=== PATIENT | female | born 1965 | race Caucasian/White ===

== ENCOUNTER 2018-06-18 22:01 | Observation (INO) | payer OTHER ==
[~2018-06-18] VITALS: Ht 160 cm; Wt 64.1 kg
[~2018-06-18 22:01] MED LIST: CYCL5TAB PO; NAPR-985 PO
[2018-06-19] VITALS (10 sets, daily range): BP systolic 100–136; BP diastolic 56–69; PULSE 59–88; RESP 18–20; Ht 160 cm; Wt 64.1 kg
--- NOTE | 2018-06-19 05:26 | ERD ---
ER Documentation Chief Complaint Chief Complaint left arm shooting pain today, s/p angiogram today. denies CP / sob. HPI This is a 51-year female comes in with left arm shooting pain and palpitations. Patient received this earlier states she has had palpitations on and off over the past few months. She follows outpatient with cardiology. She denies any fevers chills nausea vomiting she does complain of some chest discomfort, but not pain. Denies any shortness of breath. Has been told she has "a weak heart" ROS All systems reviewed and are negative except as per history of present illness. Medications Home Meds Active Scripts Naproxen* (Naprosyn*) 500 Mg Tablet, 500 MG PO BID, #30 TAB Prov:JI RIVERA PA-C 11/13/15 Cyclobenzaprine Hcl* (Cyclobenzaprine Hcl*) 5 Mg Tablet, 5 MG PO Q8H PRN for PAIN, #15 TAB Prov:JI RIVERA PA-C 11/13/15 Allergies Allergies: Coded Allergies: No Known Allergy (Unverified , 06/18/18) PMhx/Soc Medical and Surgical Hx: pt denies Surgical Hx History of Surgery: No Anesthesia Reaction: No Hx Neurological Disorder: No Hx Respiratory Disorders: No Hx Cardiac Disorders: Yes (heart block) Hx Psychiatric Problems: No Hx Miscellaneous Medical Probl: No Hx Alcohol Use: No Hx Substance Use: No Hx Tobacco Use: No Smoking Status: Never smoker Physical Exam Vitals Vital Signs Date Temp Pulse Resp B/P (MAP) Pulse Ox O2 O2 Flow FiO2 Time Delivery Rate 06/19/18 58 12 103/49 99 Room Air 05:00 (67) 06/19/18 60 13 117/53 99 Room Air 03:26 (74) 06/19/18 119 16 140/50 100 Room Air 00:54 (80) 06/18/18 98.5 74 20 133/76 99 22:26 (95) Physical Exam Const: No acute distress Head: Atraumatic Eyes: Normal Conjunctiva ENT: Normal External Ears, Nose and Mouth. Neck: Full range of motion. No meningismus. Resp: Clear to auscultation bilaterally Cardio: Regular rate and rhythm, no murmurs Abd: Soft, non tender, non distended. Normal bowel sounds Skin: No petechiae or rashes Back: No midline or flank tenderness Ext: No cyanosis, or edema Neur: Awake and alert Psych: Normal Mood and Affect Result Diagram: 06/19/18 0136 06/19/18 0136 Results 24 hrs Laboratory Tests Test 06/19/18 01:36 White Blood Count 7.5 10^3/ul Red Blood Count 4.14 10^6/ul Hemoglobin 13.4 g/dl Hematocrit 39.8 % Mean Corpuscular Volume 96.1 fl Mean Corpuscular Hemoglobin 32.4 pg Mean Corpuscular Hemoglobin Concent 33.7 g/dl Red Cell Distribution Width 12.2 % Platelet Count 243 10^3/UL Mean Platelet Volume 9.7 fl Immature Granulocytes % 0.300 % Neutrophils % 22.9 % Lymphocytes % 66.2 % Monocytes % 8.5 % Eosinophils % 1.6 % Basophils % 0.5 % Nucleated Red Blood Cells % 0.0 /100WBC Immature Granulocytes # 0.020 10^3/ul Neutrophils # 1.7 10^3/ul Lymphocytes # 5.0 10^3/ul Monocytes # 0.6 10^3/ul Eosinophils # 0.1 10^3/ul Basophils # 0.0 10^3/ul Nucleated Red Blood Cells # 0.0 10^3/ul Sodium Level 143 mmol/L Potassium Level 4.4 mmol/L Chloride Level 105 mmol/L Carbon Dioxide Level 26 mmol/L Anion Gap 12 Blood Urea Nitrogen 13 mg/dl Creatinine 0.60 mg/dl Est Glomerular Filtrat Rate mL/min > 60 mL/min Glucose Level 105 mg/dl Calcium Level 9.8 mg/dl Total Bilirubin 1.1 mg/dl Direct Bilirubin 0.00 mg/dl Indirect Bilirubin 1.1 mg/dl Aspartate Amino Transf (AST/SGOT) 26 IU/L Alanine Aminotransferase (ALT/SGPT) 20 IU/L Alkaline Phosphatase 122 IU/L Troponin I < 0.012 ng/ml B-Type Natriuretic Peptide 766 PG/ML Total Protein 8.6 g/dl Albumin 4.7 g/dl Globulin 3.90 g/dl Albumin/Globulin Ratio 1.20 Procedures/MDM EKG: Rate/Rhythm: [Normal Sinus Rhythm] QRS, ST, T-waves: [No changes consistent w/ acute ischemia] Impression: [No evidence of ischemia or arrhythmia] Chest X-ray 1V Interpreted by me: Soft Tissue: No acute abnormalities Bones: No acute abnormalities Mediastinum/Cardiac Silhouette/Lungs: [No acute abnormalities] Medical decision making: Patient's symptoms are concerning for cardiac cause will require inpatient workup and continuous monitoring. Further w/u for ischemia, arrhythmia, PE or dissection will be deferred to the inpatient team. Accepting Care Team: Current data and ongoing care discussed. Time: 5:10 AM Primary Provider: Hospitalist Consulting: Deferred to inpatient Outstanding Data: none Departure Diagnosis: Primary Impression: Chest pain Chest pain type: unspecified Qualified Codes: R07.9 - Chest pain, unspecified Condition: KAELA Olvera Jun 19, 2018 05:25
[2018-06-19] MEDS ORDERED: CARV6.2579 PO (05:52)
[2018-06-19] MEDS ORDERED: ALBUTEROL/IPRATROPIUM (NEB) 3 ML AMP HHN PRN (07:30)
[2018-06-19] MEDS ORDERED: ACETAMINOPHEN 325 MG TAB PO PRN (07:30)
[2018-06-19] MEDS ORDERED: NACL 0.9% 3 ML SYG IV SCH (07:30)
[2018-06-19] MEDS ORDERED: ONDANSETRON 4 MG INJ IV PRN (07:30)
[2018-06-19] MEDS ORDERED: HYDROCODONE/APAP (5/325) TAB PO PRN ×2 (07:30)
--- NOTE | 2018-06-19 08:46 | HP ---
Date/Time of Note Date/Time of Note DATE: 06/19/18 TIME: 08:32 Assessment/Plan VTE Prophylaxis Pharmacological prophylaxis: LMWH Lines/Catheters IV Catheter Type (from Nrsg): Saline Lock Assessment/Plan Assessment/Plan 1. Chronic palpitations and chest pain: -Outpatient EKG with possible abnormality -Admit to telemetry unit -Initial EKG shows NSR -Supplemental oxygen, aspirin. As needed nitro -Trend troponin -2D-echo and cardiology consult 2. Possible systolic dysfunction: The patient, 2D echo a few weeks ago showed EF of 30% -No sign of acute CHF exacerbation on exam or by history -Follow-up 2D echo 3. Left arm pain (" electric shock"): Unknown etiology. Given the timing however, it could be from being bitten by bugs, like the patient explains -There is no sign of swelling and no tenderness on palpation -Watchful observation for now Result Diagram: 06/19/18 0136 06/19/18 0136 Results 24hrs Laboratory Tests Test 06/19/18 01:36 White Blood Count 7.5 Red Blood Count 4.14 L Hemoglobin 13.4 Hematocrit 39.8 Mean Corpuscular Volume 96.1 Mean Corpuscular Hemoglobin 32.4 Mean Corpuscular Hemoglobin Concent 33.7 Red Cell Distribution Width 12.2 Platelet Count 243 Mean Platelet Volume 9.7 Immature Granulocytes % 0.300 Neutrophils % 22.9 L Lymphocytes % 66.2 H Monocytes % 8.5 Eosinophils % 1.6 Basophils % 0.5 Nucleated Red Blood Cells % 0.0 Immature Granulocytes # 0.020 Neutrophils # 1.7 Lymphocytes # 5.0 H Monocytes # 0.6 Eosinophils # 0.1 Basophils # 0.0 Nucleated Red Blood Cells # 0.0 Sodium Level 143 Potassium Level 4.4 Chloride Level 105 Carbon Dioxide Level 26 Anion Gap 12 Blood Urea Nitrogen 13 Creatinine 0.60 Est Glomerular Filtrat Rate mL/min > 60 Glucose Level 105 Calcium Level 9.8 Total Bilirubin 1.1 Direct Bilirubin 0.00 Indirect Bilirubin 1.1 Aspartate Amino Transf (AST/SGOT) 26 Alanine Aminotransferase (ALT/SGPT) 20 Alkaline Phosphatase 122 H Troponin I < 0.012 B-Type Natriuretic Peptide 766 H Total Protein 8.6 H Albumin 4.7 Globulin 3.90 H Albumin/Globulin Ratio 1.20 HPI/ROS Admit Date/Time Admit Date/Time Jun 19, 2018 at 05:26 Hx of Present Illness This is a 53-year-old female with no significant past medical history who presented to ER for left forearm pain, palpitation, occasional chest pain and abnormal EKG. she said she was stung by a bug in her forearm in April of this year. She said she still has something stuck on her forearm and at the area became tender and erythematous. Since then, she said she has been occasionally experiencing electric shock type sensation on her left forearm. She went to see her PCP. During that visit, she also reported palpitation for over a year and half. She also reported occasional chest pain. An EKG was done a few weeks ago and she was told it was abnormal ("branch block"). She said she waited for authorization and yesterday she had CT angiogram of the chest. She does not know the results yet. She said she also had 2D echo as outpatient and she thinks her ejection fraction is 30%. Because of ongoing symptoms mentioned above and the abnormal EKG, she decided to come to the ER for evaluation. When she presented to ER, vitals were stable. EKG normal sinus rhythm. Chest x-ray without acute findings. PMH/Family/Social Past Medical History Medical History: other (See HPI) Medications Current Medications IV Flush (NS 3 ml) 3 ml PER PROTOCOL IV ; Start 06/19/18 at 07:30 Ondansetron HCl (Zofran Inj) 4 mg Q6H PRN IV NAUSEA/VOMITING; Start 06/19/18 at 07:30 Acetaminophen (Tylenol Tab) 650 mg Q6H PRN PO .PAIN 1-3 OR TEMP; Start 06/19/18 at 07:30 Acetaminophen/ Hydrocodone Bitart ([place] (5/325)) 1 tab Q6H PRN PO .PAIN 4-6; Start 06/19/18 at 07:30 Acetaminophen/ Hydrocodone Bitart ([place] (5/325)) 2 tab Q6H PRN PO .PAIN 7-10; Start 06/19/18 at 07:30 Enoxaparin Sodium (Lovenox) 40 mg DAILY SC ; Start 06/19/18 at 09:00 Albuterol/ Ipratropium (Duoneb) 3 ml Q2H RESP THERAPY PRN HHN SHORTNESS OF BREATH; Start 06/19/18 at 07:30 Carvedilol (Coreg) 6.25 mg BID PO ; Start 06/19/18 at 09:00 Coded Allergies: No Known Allergy (Unverified , 06/18/18) Past Surgical History Past Surgical Hx: other (HPI) Family History Significant Family History: no pertinent family hx Social History Alcohol Use: none Smoking Status: Never smoker Drug Use: none Exam/Review of Systems Vital Signs Vitals Vital Signs Date Temp Pulse Resp B/P (MAP) Pulse Ox O2 O2 Flow FiO2 Time Delivery Rate 06/19/18 98.0 71 18 136/69 100 08:20 (91) 06/19/18 Room Air 07:21 Exam Constitutional: alert, oriented, well developed Head: normocephalic, atraumatic Eyes: EOMI, PERRL Respiratory: clear to auscultation, normal air movement Cardiovascular: regular rate and rhythm, nl pulses Gastrointestinal: soft, non-tender Extremities: other (There is a very tiny area of on her left forearm, where patient said was stung by bugs) KAELA PARKER MD Jun 19, 2018 08:45
[2018-06-19] MEDS: ENOXAPARIN 40 MG/0.4 ML SYG SC SCH (12:11)
--- NOTE | 2018-06-19 13:17 | PN ---
Date/Time of Note Date/Time of Note DATE: 06/19/18 TIME: 13:16 Assessment/Plan VTE Prophylaxis Pharmacological prophylaxis: LMWH Lines/Catheters IV Catheter Type (from Nrs): Saline Lock Assessment/Plan Assessment/Plan 1. Chest pain, atypical, coronary CT angiogram was done yesterday outpatient, will follow 2. Palpitation, PVCs on ECG monitoring, no treatment needed at this time, check TSH 3. Outpatient Echo with LVEF 30%, follow up with repeated echo 4. Left arm pain (" electric shock"): Unknown etiology. Given the timing however, it happened 3 times after she was bitten by a bug at left forearm in 04/2018 5. LBBB on ECG 6. DVT prophylaxis: lovenox Result Diagram: 06/19/1813506/19/186 Results 24hrs Laboratory Tests Test 06/19/18 01:36 06/19/18 08:02 White Blood Count 7.5 Red Blood Count 4.14 L Hemoglobin 13.4 Hematocrit 39.8 Mean Corpuscular Volume 96.1 Mean Corpuscular Hemoglobin 32.4 Mean Corpuscular Hemoglobin Concent 33.7 Red Cell Distribution Width 12.2 Platelet Count 243 Mean Platelet Volume 9.7 Immature Granulocytes % 0.300 Neutrophils % 22.9 L Lymphocytes % 66.2 H Monocytes % 8.5 Eosinophils % 1.6 Basophils % 0.5 Nucleated Red Blood Cells % 0.0 Immature Granulocytes # 0.020 Neutrophils # 1.7 Lymphocytes # 5.0 H Monocytes # 0.6 Eosinophils # 0.1 Basophils # 0.0 Nucleated Red Blood Cells # 0.0 Sodium Level 143 Potassium Level 4.4 Chloride Level 105 Carbon Dioxide Level 26 Anion Gap 12 Blood Urea Nitrogen 13 Creatinine 0.60 Est Glomerular Filtrat Rate mL/min > 60 Glucose Level 105 Calcium Level 9.8 Total Bilirubin 1.1 Direct Bilirubin 0.00 Indirect Bilirubin 1.1 Aspartate Amino Transf (AST/SGOT) 26 Alanine Aminotransferase (ALT/SGPT) 20 Alkaline Phosphatase 122 H Troponin I < 0.012 < 0.012 B-Type Natriuretic Peptide 766 H Total Protein 8.6 H Albumin 4.7 Globulin 3.90 H Albumin/Globulin Ratio 1.20 Creatine Kinase 41 Creatine Kinase Index 1.3 Creatinine Kinase MB (Mass) 0.53 Subjective 24 Hr Interval Summary Free Text/Dictation no chest pain or SOB now Exam/Review of Systems Exam Vitals Vital Signs Date Temp Pulse Resp B/P (MAP) Pulse Ox O2 O2 Flow FiO2 Time Delivery Rate 06/19/18 98.3 70 20 111/56 99 11:45 (74) 06/19/18 Room Air 07:21 Constitutional: alert, oriented, well developed Psych: no complaints, nl mood/affect Head: normocephalic, atraumatic Eyes: nl conjunctiva, EOMI, nl lids ENMT: nl external ears & nose, nl lips & teeth, nl nasal mucosa & septum Neck: supple, non-tender Respiratory: clear to auscultation, normal air movement; No congested cough, No crackles/rales, No diminished breath sounds, No intercostal retraction, No labored breathing, No respirations, No tactile fremitus, No wheezing, No other Cardiovascular: regular rate and rhythm, nl pulses; No bruits, No diastolic murmur, No edema, No gallop, No irregular rhythm, No jugular venous distention (JVD), No murmurs/extra sounds, No rub, No systolic murmur, No S3, No S4, No other Gastrointestinal: soft, nl liver, spleen, non-tender Musculoskeletal: nl extremities to inspection Extremities: normal pulses; No calf tenderness, No cyanosis, No clubbing, No edema, No pitting pedal edema, No palpable cord, No tenderness, No other Neurological: [employer] II-XII intact, nl mental status, nl speech, nl strength Results Results 24hrs Laboratory Tests Test 06/19/18 01:36 06/19/18 08:02 White Blood Count 7.5 Red Blood Count 4.14 L Hemoglobin 13.4 Hematocrit 39.8 Mean Corpuscular Volume 96.1 Mean Corpuscular Hemoglobin 32.4 Mean Corpuscular Hemoglobin Concent 33.7 Red Cell Distribution Width 12.2 Platelet Count 243 Mean Platelet Volume 9.7 Immature Granulocytes % 0.300 Neutrophils % 22.9 L Lymphocytes % 66.2 H Monocytes % 8.5 Eosinophils % 1.6 Basophils % 0.5 Nucleated Red Blood Cells % 0.0 Immature Granulocytes # 0.020 Neutrophils # 1.7 Lymphocytes # 5.0 H Monocytes # 0.6 Eosinophils # 0.1 Basophils # 0.0 Nucleated Red Blood Cells # 0.0 Sodium Level 143 Potassium Level 4.4 Chloride Level 105 Carbon Dioxide Level 26 Anion Gap 12 Blood Urea Nitrogen 13 Creatinine 0.60 Est Glomerular Filtrat Rate mL/min > 60 Glucose Level 105 Calcium Level 9.8 Total Bilirubin 1.1 Direct Bilirubin 0.00 Indirect Bilirubin 1.1 Aspartate Amino Transf (AST/SGOT) 26 Alanine Aminotransferase (ALT/SGPT) 20 Alkaline Phosphatase 122 H Troponin I < 0.012 < 0.012 B-Type Natriuretic Peptide 766 H Total Protein 8.6 H Albumin 4.7 Globulin 3.90 H Albumin/Globulin Ratio 1.20 Creatine Kinase 41 Creatine Kinase Index 1.3 Creatinine Kinase MB (Mass) 0.53 Medications Medication Current Medications IV Flush (NS 3 ml) 3 ml PER PROTOCOL IV ; Start 06/19/18 at 07:30 Ondansetron HCl (Zofran Inj) 4 mg Q6H PRN IV NAUSEA/VOMITING; Start 06/19/18 at 07:30 Acetaminophen (Tylenol Tab) 650 mg Q6H PRN PO .PAIN 1-3 OR TEMP; Start 06/19/18 at 07:30 Acetaminophen/ Hydrocodone Bitart ([place] (5/325)) 1 tab Q6H PRN PO .PAIN 4-6; Start 06/19/18 at 07:30 Acetaminophen/ Hydrocodone Bitart ([place] (5/325)) 2 tab Q6H PRN PO .PAIN 7-10; Start 06/19/18 at 07:30 Enoxaparin Sodium (Lovenox) 40 mg DAILY SC Last administered on 06/19/18at 12:11; Admin Dose 40 MG; Start 06/19/18 at 09:00 Albuterol/ Ipratropium (Duoneb) 3 ml Q2H RESP THERAPY PRN HHN SHORTNESS OF BREATH; Start 06/19/18 at 07:30 Carvedilol (Coreg) 6.25 mg BID PO Last administered on 06/19/18at 11:51; Admin Dose 6.25 MG; Start 06/19/18 at 09:00 CLARICE BASS MD Jun 19, 2018 13:17
--- NOTE | 2018-06-19 17:58 | RADRPT ---
Echocardiogram Report Patient Name: Federico MCKEON ID: [id number] : 1965 (53y 5m)Study Date: 06/19/2018 8:28:10 AM Gender: FAccession #: [id number] Tech: Location: Ref.Physician: KAELA PARKER Height(Cm): BSA: Weight(Kg): Quality: AdequateAccount #: Procedures: Echocardiographic Report: Transthoracic echocardiogram with complete 2D, M-Mode, and doppler examination. Indications: Chest Pain, and Palpitations. Measurements: 2D/M Mode Doppler Measurement Value Normal Range Measurement Value Normal Range LVIDd 2D 5.2 [ 3.8 - 5.2 ] cm AV Peak Daniel 1.5 [ 100.0 - 170.0 ] cm/sec LVIDs 2D 3.9 [ 2.2 - 3.5 ] cm AV Peak PG 10.0 [ 2.0 - 9.0 ] mmHg LVPWd 2D 1.0 [ 0.6 - 0.9 ] cm LVOT Peak Daniel 1.1 [ 70.0 - 110.0 ] cm/sec IVSd 2D 1.0 [ 0.6 - 0.9 ] cm LVOT Peak PG 5.0 [ 2.0 - 6.0 ] mmHg IVS/LVPW 2D 1.0 ratio MV E Peak Daniel 0.8 [ 60.0 - 130.0 ] cm/sec AoR Diam 2D 2.6 [ 2.3 - 3.1 ] cm MV A Peak Daniel 1.0 [ 100.0 - 120.0 ] cm/sec LA/Ao 2D 2 ratio MV E/A 0.8 [ 0.8 - 1.5 ] ratio LA Dimen 2D 4.0 [ 2.7 - 3.8 ] cm MV Decel Time 197 [ 104 - 258 ] msec Lat E` Daniel 0.1 [ 10.0 - 15.0 ] cm/sec Med E` Daniel 0.0 cm/sec MV E/A 0.8 [ 0.8 - 1.5 ] ratio TR Peak Daniel 2.5 [ 100.0 - 280.0 ] cm/sec TR Peak PG 25.0 mmHg RVSP 28.0 [ 10.0 - 36.0 ] mmHg Findings: Left Ventricle: Normal left ventricular cavity size. Normal left ventricular wall thickness. Moderate global left ventricular systolic dysfunction. Ejection fraction is visually estimated at 35 %. Tissue Doppler/Mitral Doppler indices are consistent with impaired relaxation (Stage I diastolic dysfunction). There is global hypokinesis involving all segments of the left ventricle. These segments of the LV are dyskinetic septum base segment and mid septum segment. Right Ventricle: Normal right ventricular size. Normal right ventricular systolic function. Left Atrium: The left atrium is normal in size. Right Atrium: The right atrium is normal in size. Mitral Valve: Mild mitral leaflet calcification. Mild mitral annular calcification. Trace mitral regurgitation. Aortic Valve: No significant aortic stenosis or insufficiency. Aortic cusps appear mildly calcified. Tricuspid Valve: Normal appearance of the tricuspid valve. Estimated peak PA systolic pressure 28 mmHg. There is mild tricuspid regurgitation. Pulmonic Valve: Pulmonic valve not well visualized. Pericardium: Trivial pericardial effusion. Aorta: Normal aortic root. IVC: Normal size and normal respiratory collapse consistent with normal right atrial pressure. Conclusions: Moderately reduced LV systolic function. Grade 1 diastolic dysfunction. Trace mitral regurgitation. Mild tricuspid regurgitation and normal pulmonary pressures. Trivial sized perciardial effusion. Electronically Signed By: Anushka Sanders 2018-06-19 17:57:54 PDT
--- NOTE | 2018-06-19 18:06 | CONS ---
Assessment/Plan Assessment/Plan Hospital Course (Demo Recall) 53 yo presenting with left arm electric pain of unclear etiology with recent diagnosis of cardiomyopathy that is probably nonischemic. The arm discomfort and the cardiomyopathy are unlikely to be related. Impression: Cardiomyopathy, probably nonischemic Left bundle branch block left arm shooting pain Recommendations: Cardiac issues and arm unlikely related Consider EMG, neuro evaluation Continue carvedilol Will add losartan 25 mg daily Follow up with Dr. Jain regarding CTA of the coronaries and for further treatment of her cardiomyopathy Encouraged her to start walking for exercise again and to follow a healthy diet Consultation Date/Type/Reason Admit Date/Time Jun 19, 2018 at 05:26 Date of Consultation: Jun 19, 2018 Type of Consult Cardiology Reason for Consultation left arm discomfort and cardiomyopathy Requesting Provider: RAHUL LUJAN Date/Time of Note DATE: 06/19/18 TIME: 17:59 Hx of Present Illness 53 yo with recent diagnosis of cardiomyopathy, probably nonischemic, undergoing workup by Dr. Jain, presents with shooting left arm pain. She first noticed this in April in the setting of an insect bite, has been having palpitations for a couple years, which prompted her pcp to refer her for cardiology evaluation. Outpatient echo reveals LVEF 30%, carotid doppler without significant stenosis, and she underwent CTA of the coronaries yesterday and is awaiting result. The left arm shooting pain recurred yesterday which led her to come to the ED. At present, no arm pain. She has not exercised since March, has some mild dyspnea with climbing stairs which she attributes to being out of shape. She is on carvedilol 6.25 mg bid. Follow up appointment with Dr. Jain is on Monday next week. Constitutional: no complaints Eyes: no complaints ENT: no complaints Respiratory: no complaints Cardiovascular: palpitations Gastrointestinal: no complaints Genitourinary: no complaints Musculoskeletal: other (left arm electric shock pain) Skin: no complaints Neurologic: no complaints Endocrine: no complaints Lymphatic: no complaints Psychological: no complaints Immunologic: no complaints Past Medical History Medical History: other (cardiomyopathy) Home Meds Reported Medications Carvedilol* (Carvedilol*) 6.25 Mg Tablet, 6.25 MG PO BID, #60 TAB 06/19/18 Discontinued Scripts Naproxen* (Naprosyn*) 500 Mg Tablet, 500 MG PO BID, #30 TAB Prov:JI RIVERA PA-C 11/13/15 Cyclobenzaprine Hcl* (Cyclobenzaprine Hcl*) 5 Mg Tablet, 5 MG PO Q8H PRN for PAIN, #15 TAB Prov:JI RIVERA PA-C 11/13/15 Medications Current Medications IV Flush (NS 3 ml) 3 ml PER PROTOCOL IV ; Start 06/19/18 at 07:30 Ondansetron HCl (Zofran Inj) 4 mg Q6H PRN IV NAUSEA/VOMITING; Start 06/19/18 at 07:30 Acetaminophen (Tylenol Tab) 650 mg Q6H PRN PO .PAIN 1-3 OR TEMP; Start 06/19/18 at 07:30 Acetaminophen/ Hydrocodone Bitart ([place] (5/325)) 1 tab Q6H PRN PO .PAIN 4-6; Start 06/19/18 at 07:30 Acetaminophen/ Hydrocodone Bitart ([place] (5/325)) 2 tab Q6H PRN PO .PAIN 7-10; Start 06/19/18 at 07:30 Enoxaparin Sodium (Lovenox) 40 mg DAILY SC Last administered on 06/19/18at 12:11; Admin Dose 40 MG; Start 06/19/18 at 09:00 Albuterol/ Ipratropium (Duoneb) 3 ml Q2H RESP THERAPY PRN HHN SHORTNESS OF BREATH; Start 06/19/18 at 07:30 Carvedilol (Coreg) 6.25 mg BID PO Last administered on 06/19/18at 11:51; Admin Dose 6.25 MG; Start 06/19/18 at 09:00 Allergies: Coded Allergies: No Known Allergy (Unverified , 06/18/18) Past Surgical History Past Surgical Hx: no surgical history Family History Significant Family History: no pertinent family hx (no premature cad) Social History Alcohol Use: none Smoking Status: Never smoker Drug Use: none Exam/Review of Systems Vital Signs Vitals Vital Signs Date Temp Pulse Resp B/P (MAP) Pulse Ox O2 O2 Flow FiO2 Time Delivery Rate 06/19/18 59 16:00 06/19/18 97.8 20 119/57 97 15:47 (77) 06/19/18 Room Air 07:21 Exam Constitutional: alert, oriented, well developed Psych: nl mood/affect Head: normocephalic, atraumatic Eyes: nl conjunctiva, EOMI, nl lids, nl sclera ENMT: nl external ears & nose, nl lips & teeth, nl nasal mucosa & septum Neck: supple; No jvd, No bruits Respiratory: clear to auscultation, normal air movement Cardiovascular: regular rate and rhythm, nl pulses; No murmurs/extra sounds Gastrointestinal: soft, nl liver, spleen, non-tender Musculoskeletal: nl extremities to inspection Extremities: normal pulses Neurological: nl mental status, nl speech, other (Tinnel's test negative) Skin: nl turgor; No rash or lesions Labs Result Diagram: 06/19/18 0136 06/19/18 0136 Results 24hrs Laboratory Tests Test 06/19/18 01:36 06/19/18 08:02 06/19/18 13:36 White Blood Count 7.5 Red Blood Count 4.14 L Hemoglobin 13.4 Hematocrit 39.8 Mean Corpuscular Volume 96.1 Mean Corpuscular Hemoglobin 32.4 Mean Corpuscular Hemoglobin Concent 33.7 Red Cell Distribution Width 12.2 Platelet Count 243 Mean Platelet Volume 9.7 Immature Granulocytes % 0.300 Neutrophils % 22.9 L Lymphocytes % 66.2 H Monocytes % 8.5 Eosinophils % 1.6 Basophils % 0.5 Nucleated Red Blood Cells % 0.0 Immature Granulocytes # 0.020 Neutrophils # 1.7 Lymphocytes # 5.0 H Monocytes # 0.6 Eosinophils # 0.1 Basophils # 0.0 Nucleated Red Blood Cells # 0.0 Sodium Level 143 Potassium Level 4.4 Chloride Level 105 Carbon Dioxide Level 26 Anion Gap 12 Blood Urea Nitrogen 13 Creatinine 0.60 Est Glomerular Filtrat Rate mL/min > 60 Glucose Level 105 Calcium Level 9.8 Total Bilirubin 1.1 Direct Bilirubin 0.00 Indirect Bilirubin 1.1 Aspartate Amino Transf (AST/SGOT) 26 Alanine Aminotransferase (ALT/SGPT) 20 Alkaline Phosphatase 122 H Troponin I < 0.012 < 0.012 < 0.012 B-Type Natriuretic Peptide 766 H Total Protein 8.6 H Albumin 4.7 Globulin 3.90 H Albumin/Globulin Ratio 1.20 Creatine Kinase 41 38 Creatine Kinase Index 1.3 0.9 Creatinine Kinase MB (Mass) 0.53 0.36 Imaging Imaging EKG shows nsr at 62 bpm with lbbb Echo demonstrates moderately reduced LVEF at 35% with global hypokinesis Medications Medications Current Medications IV Flush (NS 3 ml) 3 ml PER PROTOCOL IV ; Start 06/19/18 at 07:30 Ondansetron HCl (Zofran Inj) 4 mg Q6H PRN IV NAUSEA/VOMITING; Start 06/19/18 at 07:30 Acetaminophen (Tylenol Tab) 650 mg Q6H PRN PO .PAIN 1-3 OR TEMP; Start 06/19/18 at 07:30 Acetaminophen/ Hydrocodone Bitart ([place] (5/325)) 1 tab Q6H PRN PO .PAIN 4-6; Start 06/19/18 at 07:30 Acetaminophen/ Hydrocodone Bitart ([place] (5/325)) 2 tab Q6H PRN PO .PAIN 7-10; Start 06/19/18 at 07:30 Enoxaparin Sodium (Lovenox) 40 mg DAILY SC Last administered on 06/19/18at 12:11; Admin Dose 40 MG; Start 06/19/18 at 09:00 Albuterol/ Ipratropium (Duoneb) 3 ml Q2H RESP THERAPY PRN HHN SHORTNESS OF BREATH; Start 06/19/18 at 07:30 Carvedilol (Coreg) 6.25 mg BID PO Last administered on 06/19/18at 11:51; Admin Dose 6.25 MG; Start 06/19/18 at 09:00 ENDY VILLA Jun 19, 2018 18:06
[2018-06-20] VITALS (8 sets, daily range): BP systolic 118–135; BP diastolic 55–87; PULSE 57–97; RESP 18–22
[2018-06-20] MEDS: ENOXAPARIN 40 MG/0.4 ML SYG SC SCH (08:45)
--- NOTE | 2018-06-20 09:41 | CONS ---
Assessment/Plan Assessment/Plan Hospital Course (Demo Recall) 53 yo presenting with left arm electric pain of unclear etiology with recent diagnosis of cardiomyopathy that is probably nonischemic. The arm discomfort and the cardiomyopathy are unlikely to be related. Impression: Cardiomyopathy, probably nonischemic, awaiting CT angio result Left bundle branch block left arm shooting pain, improved Recommendations: Cardiac issues and arm unlikely related Consider EMG, neuro evaluation which can be done as an outpatient Continue carvedilol, added losartan 25 mg daily Follow up with Dr. Jain regarding CTA of the coronaries and for further treatment of her cardiomyopathy Encouraged her to start walking for exercise again and to follow a healthy diet Consultation Date/Type/Reason Admit Date/Time Jun 19, 2018 at 05:26 Initial Consult Date 06/19/18 Type of Consult Cardiology Requesting Provider: RAHUL LUJAN Date/Time of Note DATE: 06/20/18 TIME: 09:39 24 HR Interval Summary Free Text/Dictation No events overnight. Left arm without pain. Patient walking in her room. Eager to go home. Exam/Review of Systems Vital Signs Vitals Vital Signs Date Temp Pulse Resp B/P (MAP) Pulse Ox O2 O2 Flow FiO2 Time Delivery Rate 06/20/18 98.6 68 22 119/55 96 Room Air 07:20 (76) Intake and Output 06/19/18 06/19/18 06/20/18 1414:59 22:59 06:59 IntakeIntake Total 720 ml BalanceBalance 720 ml Exam Constitutional: alert, oriented, well developed Psych: no complaints, nl mood/affect Head: normocephalic, atraumatic Eyes: nl lids, nl sclera ENMT: nl external ears & nose Neck: supple; No bruits Respiratory: clear to auscultation, normal air movement Cardiovascular: regular rate and rhythm; No murmurs/extra sounds Gastrointestinal: soft Musculoskeletal: nl extremities to inspection, nl gait and stance Extremities: No edema Neurological: nl mental status, nl speech Labs Result Diagram: 06/20/18 0506/20/18 0511 Results 24hrs Laboratory Tests Test 06/19/18 13:36 06/20/18 05:11 Creatine Kinase 38 Creatine Kinase Index 0.9 Creatinine Kinase MB (Mass) 0.36 Troponin I < 0.012 White Blood Count 6.4 Red Blood Count 3.86 L Hemoglobin 12.5 Hematocrit 37.0 Mean Corpuscular Volume 95.9 Mean Corpuscular Hemoglobin 32.4 Mean Corpuscular Hemoglobin Concent 33.8 Red Cell Distribution Width 12.4 Platelet Count 229 Mean Platelet Volume 9.8 Immature Granulocytes % 0.300 Neutrophils % 35.7 L Lymphocytes % 55.1 H Monocytes % 7.1 Eosinophils % 1.3 Basophils % 0.5 Nucleated Red Blood Cells % 0.0 Immature Granulocytes # 0.020 Neutrophils # 2.3 Lymphocytes # 3.5 H Monocytes # 0.5 Eosinophils # 0.1 Basophils # 0.0 Nucleated Red Blood Cells # 0.0 Sodium Level 140 Potassium Level 3.8 Chloride Level 105 Carbon Dioxide Level 24 Anion Gap 11 Blood Urea Nitrogen 15 Creatinine 0.56 Est Glomerular Filtrat Rate mL/min > 60 Glucose Level 105 Hemoglobin A1c 5.6 Calcium Level 8.9 Magnesium Level 1.9 Total Bilirubin 1.8 H Direct Bilirubin 0.00 Indirect Bilirubin 1.8 H Aspartate Amino Transf (AST/SGOT) 22 Alanine Aminotransferase (ALT/SGPT) 22 Alkaline Phosphatase 79 Total Protein 7.6 # Albumin 4.1 Globulin 3.50 H Albumin/Globulin Ratio 1.17 Triglycerides Level 110 Cholesterol Level 174 LDL Cholesterol, Calculated 115 HDL Cholesterol 37 Cholesterol/HDL Ratio 4.7 Thyroid Stimulating Hormone (TSH) 1.870 Medications Medications Current Medications IV Flush (NS 3 ml) 3 ml PER PROTOCOL IV ; Start 06/19/18 at 07:30 Ondansetron HCl (Zofran Inj) 4 mg Q6H PRN IV NAUSEA/VOMITING; Start 06/19/18 at 07:30 Acetaminophen (Tylenol Tab) 650 mg Q6H PRN PO .PAIN 1-3 OR TEMP; Start 06/19/18 at 07:30 Acetaminophen/ Hydrocodone Bitart ([place] (5/325)) 1 tab Q6H PRN PO .PAIN 4-6; Start 06/19/18 at 07:30 Acetaminophen/ Hydrocodone Bitart ([place] (5/325)) 2 tab Q6H PRN PO .PAIN 7-10; Start 06/19/18 at 07:30 Enoxaparin Sodium (Lovenox) 40 mg DAILY SC Last administered on 06/20/18at 08:45; Admin Dose 40 MG; Start 06/19/18 at 09:00 Albuterol/ Ipratropium (Duoneb) 3 ml Q2H RESP THERAPY PRN HHN SHORTNESS OF BREATH; Start 06/19/18 at 07:30 Carvedilol (Coreg) 6.25 mg BID PO Last administered on 06/20/18at 08:30; Admin Dose 6.25 MG; Start 06/19/18 at 09:00 Losartan Potassium (Cozaar) 25 mg DAILY PO ; Start 06/20/18 at 10:00 ENDY VILLA Jun 20, 2018 09:41
[2018-06-20] MEDS ORDERED: LOSARTAN 25 MG TAB PO SCH (10:00)
[2018-06-20] MEDS ORDERED: LOSA25TA2 PO (14:17)
--- NOTE | 2018-06-20 14:27 | DS ---
Date/Time of Note Date/Time of Note DATE: 06/20/18 TIME: 14:19 Discharge Summary Admission/Discharge Info Admit Date/Time Jun 19, 2018 at 05:26 Discharge Date/Time Discharge Diagnosis 1. Chest pain, atypical, coronary CT angiogram was done follow up with cardio logy for report 2. Dilated cardiomyopathy, unkown etiology, follow up with cardiology for further work up 3. CHF, systolic, chronic, on coreg and losartan, follow up with cardiology 4. Left arm pain, likely related to the bug bit in 04/2018, follow up with PCP 5. LBBB on ECG Patient Condition: Stable Procedures Echocardiogram Report Patient Name: GEOFFREY MCKEON : 1965 (53y 5m) Study Date: 06/19/2018 8:28:10 AM Gender: F Tech: SN Location: Ref.Physician: KAELA PARKER Height(Cm): BSA: Weight(Kg): Quality: Adequate Account #: Procedures: Echocardiographic Report: Transthoracic echocardiogram with complete 2D, M-Mode, and doppler examination. Indications: Chest Pain, and Palpitations. Measurements: 2D/M Mode Doppler Measurement Value Normal Range Measurement Value Normal Range LVIDd 2D 5.2 [ 3.8 - 5.2 ] cm AV Peak Daniel 1.5 [ 100.0 - 170.0 ] cm/sec LVIDs 2D 3.9 [ 2.2 - 3.5 ] cm AV Peak PG 10.0 [ 2.0 - 9.0 ] mmHg LVPWd 2D 1.0 [ 0.6 - 0.9 ] cm LVOT Peak Daniel 1.1 [ 70.0 - 110.0 ] cm/sec IVSd 2D 1.0 [ 0.6 - 0.9 ] cm LVOT Peak PG 5.0 [ 2.0 - 6.0 ] mmHg IVS/LVPW 2D 1.0 ratio MV E Peak Daniel 0.8 [ 60.0 - 130.0 ] cm/sec AoR Diam 2D 2.6 [ 2.3 - 3.1 ] cm MV A Peak Daniel 1.0 [ 100.0 - 120.0 ] cm/sec LA/Ao 2D 2 ratio MV E/A 0.8 [ 0.8 - 1.5 ] ratio LA Dimen 2D 4.0 [ 2.7 - 3.8 ] cm MV Decel Time 197 [ 104 - 258 ] msec Lat E` Daniel 0.1 [ 10.0 - 15.0 ] cm/sec Med E` Daniel 0.0 cm/sec MV E/A 0.8 [ 0.8 - 1.5 ] ratio TR Peak Daniel 2.5 [ 100.0 - 280.0 ] cm/sec TR Peak PG 25.0 mmHg RVSP 28.0 [ 10.0 - 36.0 ] mmHg Findings: Left Ventricle: Normal left ventricular cavity size. Normal left ventricular wall thickness. Moderate global left ventricular systolic dysfunction. Ejection fraction is visually estimated at 35 %. Tissue Doppler/Mitral Doppler indices are consistent with impaired relaxation (Stage I diastolic dysfunction). There is global hypokinesis involving all segments of the left ventricle. These segments of the LV are dyskinetic septum base segment and mid septum segment. Right Ventricle: Normal right ventricular size. Normal right ventricular systolic function. Left Atrium: The left atrium is normal in size. Right Atrium: The right atrium is normal in size. Mitral Valve: Mild mitral leaflet calcification. Mild mitral annular calcification. Trace mitral regurgitation. Aortic Valve: No significant aortic stenosis or insufficiency. Aortic cusps appear mildly calcified. Tricuspid Valve: Normal appearance of the tricuspid valve. Estimated peak PA systolic pressure 28 mmHg. There is mild tricuspid regurgitation. Pulmonic Valve: Pulmonic valve not well visualized. Pericardium: Trivial pericardial effusion. Aorta: Normal aortic root. IVC: Normal size and normal respiratory collapse consistent with normal right atrial pressure. Conclusions: Moderately reduced LV systolic function. Grade 1 diastolic dysfunction. Trace mitral regurgitation. Mild tricuspid regurgitation and normal pulmonary pressures. Trivial sized perciardial effusion. Electronically Signed By: Anushka Sanders 2018-06-19 17:57:54 PDT Hospital Course This is a 53-year-old female with no significant past medical history who presented to ER for left forearm pain, palpitation, occasional chest pain and abnormal EKG. she said she was stung by a bug in her forearm in April of this year. She said she still has something stuck on her forearm and at the area became tender and erythematous. Since then, she said she has been occasionally experiencing electric shock type sensation on her left forearm. She went to see her PCP. During that visit, she also reported palpitation for over a year and half. She also reported occasional chest pain. An EKG was done a few weeks ago and she was told it was abnormal ("branch block"). She said she waited for authorization and yesterday she had CT angiogram of the chest. She does not know the results yet. She said she also had 2D echo as outpatient and she thinks her ejection fraction is 30%. Because of ongoing symptoms mentioned ab ove and the abnormal EKG, she decided to come to the ER for evaluation. When she presented to ER, vitals were stable. EKG normal sinus rhythm. Chest x-ray without acute findings. For chest pain, it is atypical for angina. Troponin is negative. ECG with LBBB. Patient will follow up with her child care supervisor for coronary CTA result. Repeated echocardiography with LVEF 35%. Patient will follow up with her child care supervisor for further work up for etiology. She was on coreg, we added losartan. Physical exam on left arm without abnormal findings. Pain resolved. Home Meds Active Scripts Losartan Potassium* (Cozaar*) 25 Mg Tablet, 25 MG PO DAILY for 30 Days, TAB Prov:CLARICE BASS MD 06/20/18 Reported Medications Carvedilol* (Carvedilol*) 6.25 Mg Tablet, 6.25 MG PO BID, #60 TAB 06/19/18 Discontinued Scripts Naproxen* (Naprosyn*) 500 Mg Tablet, 500 MG PO BID, #30 TAB Prov:JI RIVERA PA-C 11/13/15 Cyclobenzaprine Hcl* (Cyclobenzaprine Hcl*) 5 Mg Tablet, 5 MG PO Q8H PRN for PAIN, #15 TAB Prov:JI RIVERA PA-C 11/13/15 Follow-up Plan PCP and cardiology in one week Primary Care Provider [facility] Pending Labs Laboratory Tests Test 06/20/18 05:11 White Blood Count 6.4 10^3/ul (4.8-10.8) Red Blood Count 3.86 10^6/ul (4.20-5.40) Hemoglobin 12.5 g/dl (12.0-16.0) Hematocrit 37.0 % (37.0-47.0) Mean Corpuscular Volume 95.9 fl (82.0-101.0) Mean Corpuscular Hemoglobin 32.4 pg (29.0-33.0) Mean Corpuscular Hemoglobin Concent 33.8 g/dl (32.0-37.0) Red Cell Distribution Width 12.4 % (11.5-14.5) Platelet Count 229 10^3/UL (140-415) Mean Platelet Volume 9.8 fl (7.4-10.4) Immature Granulocytes % 0.300 % (0.001-0.429) Neutrophils % 35.7 % (39.0-77.0) Lymphocytes % 55.1 % (15.0-51.0) Monocytes % 7.1 % (0.0-11.0) Eosinophils % 1.3 % (0.0-7.0) Basophils % 0.5 % (0.0-2.0) Nucleated Red Blood Cells % 0.0 /100WBC (0.0-0.0) Immature Granulocytes # 0.020 10^3/ul (0.0-0.031) Neutrophils # 2.3 10^3/ul (1.6-7.5) Lymphocytes # 3.5 10^3/ul (0.8-2.9) Monocytes # 0.5 10^3/ul (0.3-0.9) Eosinophils # 0.1 10^3/ul (0.0-0.5) Basophils # 0.0 10^3/ul (0.0-0.1) Nucleated Red Blood Cells # 0.0 10^3/ul (0.0-0.0) Sodium Level 140 mmol/L (135-144) Potassium Level 3.8 mmol/L (3.5-5.1) Chloride Level 105 mmol/L (97-110) Carbon Dioxide Level 24 mmol/L (21-31) Anion Gap 11 (5-13) Blood Urea Nitrogen 15 mg/dl (7-20) Creatinine 0.56 mg/dl (0.44-1.00) Est Glomerular Filtrat Rate mL/min > 60 mL/min (>60) Glucose Level 105 mg/dl (70-220) Hemoglobin A1c 5.6 % (0-5.9) Calcium Level 8.9 mg/dl (8.4-10.2) Magnesium Level 1.9 mg/dl (1.7-2.5) Total Bilirubin 1.8 mg/dl (0.2-1.3) Direct Bilirubin 0.00 mg/dl (0.00-0.20) Indirect Bilirubin 1.8 mg/dl (0-1.1) Aspartate Amino Transf (AST/SGOT) 22 IU/L (15-46) Alanine Aminotransferase (ALT/SGPT) 22 IU/L (13-69) Alkaline Phosphatase 79 IU/L (42-121) Total Protein 7.6 g/dl (6.1-8.1) Albumin 4.1 g/dl (3.3-4.9) Globulin 3.50 g/dl (1.3-3.2) Albumin/Globulin Ratio 1.17 Triglycerides Level 110 mg/dl (0-149) Cholesterol Level 174 mg/dl (100-200) LDL Cholesterol, Calculated 115 mg/dl HDL Cholesterol 37 mg/dl (37-92) Cholesterol/HDL Ratio 4.7 RATIO Thyroid Stimulating Hormone (TSH) 1.870 MIU/L (0.465-4.680) CLARICE BASS MD Jun 20, 2018 14:27
== END 2018-06-20 16:28 | disposition home or self-care (01) ==
LOC: E/R 22:01 → 6WM 06-19 05:26 → INTOOBSV 06-19 05:26 → 6WM 06-19 19:58
PROVIDERS: ADMIT Internal Medicine; ATTEND Internal Medicine
DX: R07.89 Other chest pain (principal); I42.0 Dilated cardiomyopathy; I50.22 Chronic systolic (congestive) heart failure; M79.602 Pain in left arm; I44.7 Left bundle-branch block, unspecified
CPT/HCPCS: 36415; 71045; 80053; 80061; 82550; 82553; 83036; 83735; 83880; 84443; 84484; 85025; 93005; 93306; J1650; Z7500; Z7502; Z7610; G0378